=== PATIENT | female | born 1940 | race Native Hawaiian/Other Pacific Islander ===

== ENCOUNTER 2021-06-13 14:47 | Emergency (ER) | payer OTHER ==
[~2021-06-13] VITALS: Ht 170.2 cm; Wt 64.9 kg
[2021-06-13 14:56] VITALS: BP 126/71; TEMP 98.1
[2021-06-13 15:31] LABS: PLATELET COUNT 200 K/uL (152-353)
[2021-06-13 15:43] LABS: POTASSIUM 3.5 mmol/L (3.6-5.2)
[2021-06-13] MEDS ORDERED: ASPIR-8181 MG PO (16:27)
[2021-06-13] MEDS ORDERED: LIPITOR40 MG PO (16:28)
[2021-06-13] MEDS ORDERED: CLON1TAB18 PO ×3 (16:29→16:34)
[2021-06-13] MEDS ORDERED: [UNRECOGNIZED DRUG - CODE] PO (16:29)
[2021-06-13] MEDS ORDERED: FARXIGA10 MG PO (16:35)
[2021-06-13] MEDS ORDERED: DONEPEZIL HYDROC5 M1 PO (16:35)
[2021-06-13] MEDS ORDERED: FERROUS SULF325 MG PO (16:38)
[2021-06-13] MEDS ORDERED: FLAX SEED OIL PO (16:40)
[2021-06-13] MEDS ORDERED: GRALISE600 MG PO (16:52)
[2021-06-13] MEDS ORDERED: HYDROCHLOROT12.5 M1 PO (16:54)
[2021-06-13] MEDS ORDERED: LOSA50TA PO (16:55)
[2021-06-13] MEDS ORDERED: LEVO0.08 PO (16:55)
[2021-06-13] MEDS ORDERED: ACTOS15 MG PO (16:56)
[2021-06-13] MEDS ORDERED: ROPINIROLE0.25 MG PO (16:57)
== END 2021-06-13 16:05 | disposition still patient (30) ==
LOC: ED 14:47
PROVIDERS: Hospitalist
DX: R46.89 Other symptoms and signs involving appearance and behavior (principal); Z72.811 Adult antisocial behavior; Z11.52 Encounter for screening for COVID-19; Z04.6 Encounter for general psychiatric examination, requested by authority
CPT/HCPCS: 80053; 85027; 87635; 93005; 99283; U0003